=== PATIENT | female | born 1995 | race Caucasian/White ===

== ENCOUNTER 2024-12-26 11:06 | Emergency (ER) | payer MEDICAID, SELFPAY ==
--- NOTE | ~2024-12-26 | CT_ITS ---
EXAMINATION: CT ABDOMEN PELVIS WITHOUT IV CONTRAST HISTORY: left lower abdominal pain COMPARISON: There are no prior studies for comparison. TECHNIQUE: CT scan of the abdomen and pelvis was performed without contrast using standard departmental protocol. Coronal and sagittal reformatted images were generated and reviewed. Oral contrast material was not administered at the request of the referring physician. This CT exam was performed with one or more of the following dose reduction techniques: automated exposure control, adjustment of the mA and/or kV according to patient size, use of iterative reconstruction technique. DLP: 428 mGy-cm FINDINGS: LOWER CHEST: The visualized lung bases are clear. There is no pleural effusion. CARDIOVASCULATURE: The heart is normal in size. There is no pericardial effusion. LIVER: The liver is normal in size and contour. The liver has an unremarkable unenhanced appearance. GALLBLADDER / BILE DUCTS: The gallbladder is unremarkable. There is no intra or extrahepatic biliary ductal dilatation. SPLEEN: The spleen is normal in size and has an unremarkable unenhanced appearance. PANCREAS: The pancreas has an unremarkable unenhanced appearance. ADRENAL GLANDS: Unremarkable. KIDNEYS/RETROPERITONEUM: No renal or ureteral calculi are identified. There is no hydronephrosis or hydroureter. LYMPH NODES: No retroperitoneal lymphadenopathy is identified in the abdomen or pelvis. VASCULATURE: The abdominal aorta is normal in caliber. MESENTERY/PERITONEUM: No free fluid. No masses. There is no free intraperitoneal gas. STOMACH: The stomach is unremarkable. SMALL BOWEL: The small bowel is normal in caliber. COLON: The colon is unremarkable. APPENDIX: Normal. URINARY BLADDER/PELVIC ORGANS: The urinary bladder is unremarkable. An IUD is noted in the endometrial cavity of the uterus. The ovaries are unremarkable without intravenous contrast. BONES / SOFT TISSUES: No suspicious bony or soft tissue abnormalities. CT/CT abdomen pelvis wo IV con IMPRESSION: Unremarkable unenhanced CT of the abdomen and pelvis. Electronically signed by: Joe Renee MD 12/26/2024 12:50 PM EDT
--- NOTE | ~2024-12-26 | US_ITS ---
EXAMINATION: US PELVIS CLINICAL INFORMATION: Left lower quadrant pain. COMPARISON: None. Correlation made with CT abdomen and pelvis performed earlier same day. TECHNIQUE: Ultrasound of the pelvis is performed using both transabdominal and transvaginal transducers along with Doppler. Transvaginal imaging is performed due to inadequate visualization transabdominally. FINDINGS: Uterus: The uterus is retroverted , retroflexed, and measures 7.1 x 4.0 x 4.5 cm. Normal appearance of the cervix with tiny nabothian cysts. No endometrial thickening evident. An IUD is in place, appears well situated within the fundus of the uterus. The uterus is smooth in contour and has normal myometrial echogenicity. There is a tiny intramural right mid uterine segment fibroid measuring 1.2 x 0.9 x 0.9 cm. Adnexa: Both ovaries are visualized. There is normal color flow to the adnexa. There is no ovarian torsion. There is a small amount of anechoic free fluid in the cul-de-sac. This is likely physiologic. Right ovary measures 2.7 x 1.8 x 2.4 cm. Volume = 6.1 mL. Normal sonographic appearance. Left ovary measures 3.3 x 2.7 x 2.0 cm. Volume = 9.3 mL. Normal sonographic appearance. US/US pelvic and transvaginal IMPRESSION: 1. Well situated IUD device within the fundal endometrium. No endometrial thickening. 2. Small intramural fibroid in the right mid uterine segment measuring 1.2 cm. 3. Normal ovaries bilaterally. There is no evidence of ovarian torsion. 4. Trace simple free pelvic fluid, likely physiologic. Electronically signed by: Eric Cameron MD 12/26/2024 03:14 PM EDT
--- NOTE | ~2024-12-26 | US_ITS ---
EXAMINATION: US PELVIS CLINICAL INFORMATION: Left lower quadrant pain. COMPARISON: None. Correlation made with CT abdomen and pelvis performed earlier same day. TECHNIQUE: Ultrasound of the pelvis is performed using both transabdominal and transvaginal transducers along with Doppler. Transvaginal imaging is performed due to inadequate visualization transabdominally. FINDINGS: Uterus: The uterus is retroverted , retroflexed, and measures 7.1 x 4.0 x 4.5 cm. Normal appearance of the cervix with tiny nabothian cysts. No endometrial thickening evident. An IUD is in place, appears well situated within the fundus of the uterus. The uterus is smooth in contour and has normal myometrial echogenicity. There is a tiny intramural right mid uterine segment fibroid measuring 1.2 x 0.9 x 0.9 cm. Adnexa: Both ovaries are visualized. There is normal color flow to the adnexa. There is no ovarian torsion. There is a small amount of anechoic free fluid in the cul-de-sac. This is likely physiologic. Right ovary measures 2.7 x 1.8 x 2.4 cm. Volume = 6.1 mL. Normal sonographic appearance. Left ovary measures 3.3 x 2.7 x 2.0 cm. Volume = 9.3 mL. Normal sonographic appearance. US/US pelvic ovarian doppler IMPRESSION: 1. Well situated IUD device within the fundal endometrium. No endometrial thickening. 2. Small intramural fibroid in the right mid uterine segment measuring 1.2 cm. 3. Normal ovaries bilaterally. There is no evidence of ovarian torsion. 4. Trace simple free pelvic fluid, likely physiologic. Electronically signed by: Eric Cameron MD 12/26/2024 03:14 PM EDT
[2024-12-26 11:09] VITALS: BP 124/78; PULSE 76; RESP 18; TEMP 36.6; O2SAT 98; BMI 28.1
--- NOTE | 2024-12-26 11:09 | ED.GENADULT ---
HPI - General Adult General Chief complaint: Abdominal Pain Stated complaint: Abd pain Time Seen by Provider: 12/26/24 12:53 Source: patient, RN notes reviewed and old records reviewed Mode of arrival: ambulatory Limitations: no limitations History of Present Illness ED Provider: Bon [facility] narrative: Patient is a 29-year-old female presenting to emergency department with complaint of left lower quadrant pain for the past week. States pain has been intermittent. Episodes of pain have lasted anywhere from 20 minutes to an hour and a half. Reports that prior to onset of pain she had several episodes of diarrhea, nausea and 1 episode of vomiting. Reports she has not had any vomiting or diarrhea since that first day. Denies fevers. Denies dysuria, frequency, hematuria. Went to urgent care yesterday and was told she did have blood in her urine. States last menstrual period was around 3 weeks ago. Denies any abnormal vaginal discharge or concern for STIs. Denies prior abdominal surgeries. Rates pain at 10/10 when present. MD complaint: Abdominal pain Onset (ago): day(s) Location: abdomen Radiation: non-radiation Quality: sharp Pain Consistency: intermittent Related Data Allergies Allergy/AdvReac Type Severity Reaction Status Date / Time No Known Allergies Allergy Verified 12/26/24 11:10 Review of Systems Review of Systems: As per HPI Yes all other systems are reviewed and are negative Constitutional: Constitutional: Reports as per HPI [facility] Social History Social History Advance Directives: No Advance Directives Information Provided: Yes Do you have a plan to hurt others: No Plan Physical Exam ED Vital Signs: Vital Signs - 24 hr 12/26/24 11:09 12/26/24 12:44 12/26/24 14:00 Temperature 98 F 98.6 F Pulse Rate 76 62 61 Respiratory Rate 18 16 14 Blood Pressure 124/78 108/77 113/75 Pulse Oximetry 98 98 100 Oxygen Delivery Method Room Air Room Air Room Air BMI result Body Mass Index 28.1 Vital signs have been reviewed and appear to be correct. Blood pressure normal. Heart rate normal. Respiratory rate normal. Temperature normal. Oxygen saturation normal. Const General: cooperative, healthy appearing and no acute distress Orientation/consciousness: oriented to person, oriented to place, oriented to time and patient oriented x3 Limitations: no limitations HENMT Head: Yes normocephalic and Yes atraumatic Ears: external ears normal General nose exam: Normal external nose present Face and sinus: Yes face symmetric Mouth: oropharynx normal and moist mucous membranes Throat: Yes uvula midline Eyes Pupils: Equal, round and reactive pupils present Neck Neck: Yes normal visual inspection and Yes supple Resp Effort & Inspection: normal respiratory effort and able to speak in complete sentences Auscultation: clear to auscultation bilaterally Cardio Rate: regular rate Rhythm: regular rhythm Heart sounds: S1 normal heart sound present and S2 normal heart sound present GI Palpation (GI): Soft to palpation, Tenderness to palpation present (GI) in the LLQ (mild TTP), no guarding and No Rebound tenderness present Auscultation: normoactive bowel sounds General: Yes no CVA tenderness Back/Spine/Pelvis Back: no CVA tenderness Skin General skin exam: elasticity normal and turgor normal Neuro General: oriented to person, oriented to place, oriented to time, patient oriented x3, moves all extremities, no focal motor deficits and CN's II-XI intact bilaterally Cranial nerves: Yes Equal, round and reactive pupils present Cognition (Neuro): normal cognition Extrem General: Yes full ROM, Yes no pedal edema and Yes no calf tenderness Psych Mental Status: mental status grossly normal Affect: normal affect Thought process: Normal thought process present Course Course Course Narrative: RME, this is a rapid medical exam performed by Chip Kat please refer to primary provider for complete H&P- 29 year old female presents for evaluation of left lower abdominal pain for about one week. Pain is intermittent and she went to urgent care a few days ago and was told that she had blood in her urine. Denies any history of kidney stones. Plan for labs, UA, testing, CT abdomen and pelvis without contrast to evaluate for obstructive uropathy Medical Decision Making Medical Decision Making MDM Narrative: Patient is a 29-year-old female presenting to emergency department with complaint of left lower quadrant pain for the past week. On exam patient is awake, A+Ox3, VS WNL, afebrile, normal neurological exam without focal deficits, physical exam findings as above. Given reported symptoms and physical exam findings, initial differential includes but is not limited to UTI, pyelonephritis, renal colic, ureteral calculi, ovarian cyst, intermittent ovarian torsion. Less likely TOA, but will get u/s. Labs notable for no leukocytosis, no anemia, no significant electrolyte abnormalities, no evidence of ZAC. Urinalysis without evidence of infection, no blood. CT A/P notable for no evidence of renal or ureteral calculi, hydronephrosis. My interpretation is in agreement with the radiologist's interpretation. U/S pelvis notable for small fibroid right mid uterus, normal ovaries, no evidence of torsion or cyst. Patient updated on results and all questions answered. Return precautions discussed. Patient verbalized understanding of and agreement with plan. Differential Diagnosis Differential Diagnoses: The differential diagnosis associated with the presentation includes As per [facility] Admission/Observation Consideration of admission/observation: Escalation of care including admission/observation considered Patient would have been admitted to the hospital had their work up had any findings where hospital admission was appropriate and their clinical presentation warranted hospital admission. Lab Data [facility] Lab Attestation statement: I reviewed the patient's lab results. As per [facility] 12/26/24 11:46 12/26/24 11:46 Labs: Lab Results 12/26/24 Range/Units 11:46 WBC 5.4 (4.8-10.8) X10*3/uL RBC 4.18 L (4.20-5.50) X10*6/uL Hgb 13.6 (12.0-16.0) g/dl Hct 38.5 (37.0-47.0) % MCV 92.1 (80.0-98.0) fL MCH 32.5 (27.0-33.0) pg MCHC 35.3 H (31.0-35.0) g/dl RDW 12.5 (11.0-16.0) % Plt Count 265 (160-400) X10*3/uL MPV 9.5 (9.4-12.3) fL Immature Gran % (Auto) 0.4 (0.0-0.4) % Neut % (Auto) 56.4 (45-73) % Lymph % (Auto) 27.7 (20-40) % [place] % (Auto) 13.8 H (2-11) % Eos % (Auto) 1.1 (0-4) % Baso % (Auto) 0.6 (0-2) % Lymph # (Auto) 1.5 (1.2-4.9) X10*3/uL [place] # (Auto) 0.7 (0.1-1.2) X10*3/uL Eos # (Auto) 0.1 (0.0-0.4) X10*3/uL Baso # (Auto) 0.0 (0.0-0.2) X10*3/uL Abs Immat Gran (auto) 0.02 (0.00-0.03) X10*3/uL Absolute Neuts (auto) 3.0 (2.0-8.3) x10*3/uL Absolute Nucleated RBC 0.000 (0.0-0.012) X10*3/uL Nucleated RBC % (auto) 0.0 (0.0-0.2) /100WBC Sodium 137 (135-145) mmol/L Potassium 4.6 (3.3-5.1) mmol/L Chloride 107 (96-108) mmol/L Carbon Dioxide 26 (22-29) mmol/L Anion Gap 9 L (12-20) BUN 11 (9-16) mg/dL Creatinine 0.78 (0.5-1.4) mg/dL Estim Creat Clear Calc 91.4 Estimated GFR > 60 Random Glucose 89 (60-115) mg/dL Calcium 9.7 (8.4-10.2) mg/dL Total Bilirubin 0.5 (0.0-1.0) mg/dL AST 24 (5-31) U/L ALT 22 (0-31) U/L Alkaline Phosphatase 46 (39-117) U/L Total Protein 7.5 (6.5-8.0) g/dL Albumin 4.4 (3.5-5.0) g/dL Beta HCG, Quant < 2 mIU/mL Urine Color Yellow Urine Appearance Clear Urine pH 8.0 (5.0-9.0) Ur Specific [place] 1.015 (1.005-1.025) Urine Protein Negative (Neg-Trace) mg/dL Urine Glucose (UA) Negative (Negative) mg/dL Urine Ketones Negative (Negative) mg/dL Urine Blood Negative (Negative) Urine Nitrite Negative (Negative) Ur Leukocyte Esterase Negative (Negative) Urine RBC 0-2 (0-2) /HPF Urine WBC 0-5 (0-5) /HPF Ur Squamous Epith Cells 3-5 (0-2) /HPF Urine Bacteria 1+ (None Seen) Hyaline Casts 0-2 (0-2) /LPF Independent Interpretation I performed an independent interpretation of an: Ultrasound and CT Scan Interpretation: CT A/P notable for no evidence of renal or ureteral calculi, hydronephrosis. U/S pelvis notable for small fibroid right mid uterus, normal ovaries, no evidence of torsion or cyst. Radiology Impression Discussion of test interpretation with radiology: I have reviewed the radiologist's reading. Radiologist Impression: US/US pelvic and transvaginal IMPRESSION: 1. Well situated IUD device within the fundal endometrium. No endometrial thickening. 2. Small intramural fibroid in the right mid uterine segment measuring 1.2 cm. 3. Normal ovaries bilaterally. There is no evidence of ovarian torsion. 4. Trace simple free pelvic fluid, likely physiologic. CT/CT abdomen pelvis wo IV con IMPRESSION: Unremarkable unenhanced CT of the abdomen and pelvis. External Record Review External record reviewed: Inpatient record, Office record and Outpatient record Discharge Plan Discharge Clinical Impression: Abdominal pain Patient Disposition: Home, Self-Care Instructions: Abdominal Pain (ED) Additional Instructions: You have been evaluated in the emergency department today for abdominal pain. Your evaluation did not show evidence of medical conditions requiring emergent intervention at this time. Please schedule an appointment with your primary care physician. Return to the emergency department if you experience worsening or uncontrolled pain, fevers 100.4? F or greater, recurrent vomiting, inability to tolerate food or fluids by mouth, bloody stools or vomit, black or tarry stools, or any other concerning symptoms. Print Language: Sinhala
[2024-12-26 11:56] LABS: MANUAL DIFF FLAG NO
[2024-12-26 11:57] LABS: Basophils Percent Auto 0.6 % (0-2); Eosinophils Absolute Auto 0.1 X10*3/uL (0.0-0.4); Eosinophils Percent Auto 1.1 % (0-4); Hematocrit 38.5 % (37.0-47.0); Hemoglobin 13.6 g/dl (12.0-16.0); Imm Gran Abs Auto 0.02 X10*3/uL (0.00-0.03); Imm Gran Pct Auto 0.4 % (0.0-0.4); Lymphocytes Absolute Auto 1.5 X10*3/uL (1.2-4.9); Lymphocytes Percent Auto 27.7 % (20-40); Mean Corpuscular HGB Conc 35.3 g/dl (31.0-35.0); Mean Corpuscular Hemoglobin 32.5 pg (27.0-33.0); Mean Corpuscular Volume 92.1 fL (80.0-98.0); Mean Platelet Volume 9.5 fL (9.4-12.3); Monocytes Absolute Auto 0.7 X10*3/uL (0.1-1.2); Monocytes Percent Auto 13.8 % (2-11); Neutrophils Percent Auto 56.4 % (45-73); Platelet Count 265 X10*3/uL (160-400); Red Blood Count 4.18 X10*6/uL (4.20-5.50); Red Cell Distribution Width 12.5 % (11.0-16.0); White Blood Count 5.4 X10*3/uL (4.8-10.8)
[2024-12-26 11:58] LABS: Appearance Urine Clear; Color Urine Yellow; Glucose Urine UA Negative (Negative); Leukocyte Esterase Urine Negative (Negative); Nitrite Urine Negative (Negative); Specific Gravity - Urine 1.015 (1.005-1.025); Urine Blood Negative (Negative); Urine Ketones Negative (Negative); Urine Protein Negative (Neg-Trace)
[2024-12-26 12:03] LABS: Bacteria Urine 1+ (None Seen); Hyaline Casts Urine 0-2 /LPF (0-2); RBC Urine 0-2 /HPF (0-2); WBC Urine 0-5 /HPF (0-5)
[2024-12-26 12:19] LABS: Alanine Aminotransferase 22 U/L (0-31); Albumin Level 4.4 g/dL (3.5-5.0); Alkaline Phosphatase 46 U/L (39-117); Anion Gap 9 (12-20); Aspartate Amino Transferase 24 U/L (5-31); Bilirubin Total 0.5 mg/dL (0.0-1.0); Blood Urea Nitrogen 11 mg/dL (9-16); Calcium 9.7 mg/dL (8.4-10.2); Carbon Dioxide 26 mmol/L (22-29); Chloride 107 mmol/L (96-108); Creatinine Clr Calc Pharmacy 91.4; Estimated Glomerular Filt Rate > 60; Glucose Random 89 mg/dL (60-115); HCG Quantitative < 2 mIU/mL; Potassium 4.6 mmol/L (3.3-5.1); Sodium 137 mmol/L (135-145); Total Protein 7.5 g/dL (6.5-8.0)
[2024-12-26 12:44] VITALS: BP 108/77; PULSE 62; RESP 16; O2SAT 98
--- NOTE | 2024-12-26 12:47 | PC.NURSE ---
Patient presents to intermittent LLQ abdomen pain for approx one week. Patient was evaluated at a local urgent care and blood was noted in her urine.
[2024-12-26 14:00] VITALS: BP 113/75; PULSE 61; RESP 14; TEMP 37; O2SAT 100
--- NOTE | 2024-12-26 14:34 | PC.NURSE ---
Sent for US
--- OUTSIDE RECORDS SUMMARY | 2024-12-26 14:36 | XMS_ITS | Clinical Summary ---
Author Organization [facility] Address [address] [place] [phone] Phone Care Team Providers Care Casino Floorperson Name Role Phone Unavailable Primary Care Provider Unavailabl e Immunizations Immunization Administration Dates Next Due DTaP 02/02/2002, 8,1997,06/19,1997 HPV, Quadrivalent 02/05/2009,03/22/2008,01/05/20 08 Hep B, ped/adol 1997,1997,1997 Hib (PRP-T) 07/24/1998, 7,1997,04/03 IPV 02/02/2002, 8,1997,04/03 Influenza, injectable, quadrivalent 07/24/2015 Influenza, injectable, quadr ivalent, preservative free 06/01/2014 MMR 02/02/2002,02/27/1998 Meningococcal Conj (Menactra) MCV4P 05/05/2013,0 01/05/2008 Tdap 01/05/2008 Varicella 01/05/2008,02/27/1998 Family History Relation Name Status Comments Father Alive healthy age: 36 Maternal Grandfather Alive Maternal Grandmother Alive hyperte nsion, hypothyriod diagnosed with Hypertension Mother Alive healthy age: 32 Other Alive Siblings: 2 sis ters, healthy 2 1/2 sisters 11/2brother Paternal Grandfather ETOH ag e: 50s Paternal Grandmother Alive Social History Tobacco Use Types Packs/Day Years Used Date Smoking Tobacco: Never Assessed Comments Unknown Sex and Gender Information Value Date Recorded Sex Assigned at Not on file Legal Sex Female 6:16 PM EDT Gender Identity Not on file Sexual Orientation Not on file Last Filed Vital Signs Vital Sign Reading Time Taken Comments Blood Pressure 116/64 12/06/2017 12:00 AM EDT Pulse - - Temperature 37.3 ??C (99.1 ??F) 12/06/2017 12:00 AM E DT Respiratory Rate - - Oxygen Saturation - - Inhaled Oxygen Concentration - - Weight 70 kg (154 lb 6.4 oz) 12/06/2017 12:00 AM EDT Height 153.7 cm (5' 0.5 ) 12/06/2017 12:00 AM ED T Body Mass Index 29.66 12/06/2017 12:00 AM EDT Plan of Treatment Health Maintenance Due Date Last Done Comments DTaP,Tdap,and Td Vaccines (7 - Td or Tdap) 01/04/2018 01/05/2008, 02/02/2002, 07/24/1998, Additional history exists Influenza Vaccines (#1) 2024 07/24/2015, 06/01 COVID-19 Vaccine ( season) 2024 Hepatitis B Vaccines Completed 1997, 1997, 1997 HIB Vaccines Completed 07/24/1998, 07/21, 1997, Additional history exists IPV Vaccines Completed 02/02/2002, 02/18, 1997, Additional history exists MMR Vaccines Completed 02/02/2002, 02/27/1998 Varicella Vaccines Completed 01/05/2008, 02/27/1998 HPV Vaccines Completed 02/05/2009, 07/0 11/2007, 01/05/2008 Meningococcal Vaccine Completed 05/05/2013, 008 Hepatitis A Vaccines Aged Out No long er eligible based on patient's age to complete this topic Men B Vaccine Aged Out No longer elig ible based on patient's age to complete this topic Pneumococcal Vaccine Aged Out No long er eligible based on patient's age to complete this topic Procedures * Due to [place] state law, this organization might not be sharing sensitive test results. Procedure Name Priority Date/Time Associated Diagnosis Comments CHLAMYDIA AND GONORRHEA, AMPLIFIED Routine 04/21/2017 12:00 AM EDT from Last 3 Months or Most Recently Relevant to Health Maintenance Results * Due to [place] state law, this organization might not be sharing sensitive test results. * Chlamydia and Gonorrhoea, Amplified (04/21/2017 12:00 AM EDT) URINE GC AMP PROBE NEGATIVE C ONVERTED LABS Comment: No Neisseria Gonorrhoeae RNA detected in this patient's sample (REFERENCE RANGE/NORMAL VALUE: NOT DETECTED) NOTE: This test uses health occupations teacher-mediated amplification method to detect rRNA from C.Trachomatis and N.Gonorrhoeae. A negative result does not preclude infection. In the case of a negative urine result, testing of an endocervical(female) or urethral(male) specimen is recommended if there is high clinical suspicion of infection. Due to very high sensitivity of Nucleic Acid Amplification Test, false positive results may occur. Therefore, specimen handling is extremely important. In patients in whom the disease is unlikely, additional sample for testing should be considered after an initial positive result. The performance characteristics of this test have not been evaluated in children. The Aptima Combo2 assay is not intended for the evaluation of suspected sexual abuse or for other medico-legal indications. The ordering provider should assess if the patient had consensual sex without risk of sexual abuse. Consult the [facility] if needed. Contact phone number . Therapeutic failure or success cannot be determined with the Aptima Combo2 assay since nucleic acid may persist following appropriate antimicrobial therapy. The Centers for Disease Control and Prevention (CDC) recommends confirmatory retesting using culture or a different nucleic acid amplification test when positive results occur, if indicated. URINE CHLAMYDIA AMP PROBE NEGATIVE CONVERTED LABS Comment: No Chlamydia Trachomatis RNA detected in this patient's sample (REFERENCE RANGE/NORMAL VALUE: NOT DETECTED) 04/21/2017 Narrative CONVERTED LABS - 04/21/2017 12:00 AM EDT Screening Negative Marilyn Pabon 04/20/2017 05:35:51 PM > sent to Monserrat Medina 04/21/2017 03:26:00 PM > Olga Richey 04/22/2017 08:08:55 AM > us Olga Richey MD LAB MICROBIOLOGY - GENERAL ORDER KENNETH Final Result CONVERTED LABS from Last 3 Months or Most Recently Relevant to Health Maintenance
--- OUTSIDE RECORDS SUMMARY | 2024-12-26 14:36 | XMS_ITS | Encounter Summary ---
Author Organization [facility] Address [address] [place] [phone] Phone Care Team Providers Care Modern Dancer Name Role Phone Jazz Barriga MD Primary Care Provider [phone] Encounter Details Date Type Department Care Team (Late st Contact Info) Description 02/06/2018 Conversion Encounter [facility] [id number] [place] [address] Jazz Barriga MD [address] [place] [address] Social History Tobacco Use Types Packs/Day Years Used Date Smoking Tobacco: Never Assessed Comments Unknown Sex and Gender Information Value Date Recorded Sex Assigned at Not on file Legal Sex Female 6:16 PM EDT Gender Identity Not on file Sexual Orientation Not on file documented as of this encounter Plan of Treatment Not on file documented as of this encounter Visit Diagnoses Not on filedocumented in this encounter Care Teams Modern Dancer Relationship Specialty Start Date End Date Jazz Barriga MD [address] [place] [id number] PCP - General 01/26/18 10/31/24 documented as of this encounter
--- OUTSIDE RECORDS SUMMARY | 2024-12-26 14:36 | XMS_ITS | Encounter Summary ---
Author Organization [facility] Address [address] [place] [phone] Phone Care Team Providers Care Rewrite Editor Name Role Phone Jazz Barriga MD Primary Care Provider [phone] Encounter Details Date Type Department Care Team (Late st Contact Info) Description 09/25/2009 Documentation [facility] [address] [place] [address] Family Medicine, Physician [address] [place] [address] Social History Tobacco Use Types Packs/Day Years [...] on filedocumented in this encounter Care Teams Rewrite Editor Relationship Specialty Start Date End Date Jazz Barriga MD [address] [place] [address] PCP - General 01/26/18 10/31/24 documented as of this encounter
--- OUTSIDE RECORDS SUMMARY | 2024-12-26 14:36 | XMS_ITS | Clinical Summary ---
Author Organization [employer] [facility] Address [address] [place] [address] Care Team Providers Care Lubricating Machine Tender Name Role Phone Unavailable Primary Care Provider Unavailabl e Encounters Date Type Department Care Team Description 12/01/2024 Population Health Risk Score [facility] ([facility]) Department [address] [id number] Provider, Population Health Generic from Last 3 Months Social History Tobacco Use Types Packs/Day Years Used Date Smoking Tobacco: Never Assessed Comments Unknown Sex and Gender Information Value Date Recorded Sex Assigned at Female 07/20/2022 10:40 AM EDT Legal Sex Female 10:40 AM EDT Gender Identity Female 07/20/2022 10:40 AM EDT Sexual Orientation Choose not to disclose 2021 10:40 AM EDT Last Filed Vital Signs Vital Sign Reading Time Taken Comments Blood Pressure 138/84 06/26/2022 12:10 AM EDT Pulse 70 06/26/2022 12:10 AM EDT Temperature - - Respiratory Rate - - Oxygen Saturation - - Inhaled Oxygen Concentration - - Weight 67.2 kg (148 lb 3.2 oz) 06/26/2022 12:10 AM EDT Height 152.4 cm (5') 06/26/2022 12:10 AM EDT Body Mass Index 28.94 06/26/2022 12:10 AM EDT Plan of Treatment Health Maintenance Due Date Last Done Comments Depression Screening 1997 HIV Screening 1997 Alcohol/Substance Use Screening 2009 Tobacco Screening 2009 Family Planning (PISQ) 02/05/2012 Hepatitis C Screening 2015 DTaP/Tdap/Td Vaccines (1 - Tdap) 02/05/2016 Hepatitis B Vaccines (1 of 3 - 19+ 3-dose series) 02/05/2016 Pap Smear 2018 COVID-19 Vaccine ( - 2023-2 5 season) 2024 Influenza Vaccine (#1) 2024 Zoster Vaccines (1 of 2) 2047 RSV Patients and Pa tients Aged 60 years or older (1 - 1-dose 75+ series) 02/05/2072 HIB Vaccines Aged Out No longer eligi ble based on patient's age to complete this topic HPV Vaccines Aged Out No longer eligi ble based on patient's age to complete this topic Hepatitis A Vaccines Aged Out No long er eligible based on patient's age to complete this topic IPV Vaccines Aged Out No longer eligi ble based on patient's age to complete this topic Meningococcal Vaccine Aged Out No emery mello eligible based on patient's age to complete this topic Pneumococcal Vaccine: Pediat rics (0 to 5 Years) and At-Risk Patients (6 to 49) Years) Aged Out No longer eligible b ased on patient's age to complete this topic RSV under 20 months Aged Out No longe r eligible based on patient's age to complete this topic Rotavirus Vaccines Aged Out No longer eligible based on patient's age to complete this topic
[2024-12-26 15:57] VITALS: BP 118/69; PULSE 73; RESP 16; TEMP 36.7; O2SAT 99
[2024-12-26 16:01] VITALS: BP 118/69; PULSE 73; RESP 16; TEMP 36.7; O2SAT 99
== END 2024-12-26 16:02 | disposition home or self-care (01) ==
PROVIDERS: Physician Assistant; Emergency Provider Emergency Medicine
DX: R10.32 Left lower quadrant pain (principal)
CPT/HCPCS: 36415; 74176; 76830; 76856; 80053; 81001; 84702; 85025; 93975; 99284

== ENCOUNTER → 2024-12-26 11:12 | Outpatient (BNV) | payer MEDICAID, SELFPAY | PROVIDERS: Emergency Provider Emergency Medicine; Visit Provider Radiology Diagnostic Radiology | DX: R10.32 Left lower quadrant pain (principal) | CPT/HCPCS: 74176; 76830; 76856; 93975 ==